=== PATIENT | male | born 1980 | race Caucasian/White ===

== ENCOUNTER 2017-01-31 00:42 | Emergency (ER) | payer BC, OTHER ==
[2017-01-31 01:09] VITALS: BP 130/69
[2017-01-31] MEDS ORDERED: CHLO50TA PO (01:15)
[2017-01-31] MEDS ORDERED: POTA50TAB PO (01:15)
[2017-01-31] MEDS ORDERED: NS 1,000 ML IV ONE ×2 (02:00→03:15)
--- NOTE | 2017-01-31 02:50 | REPUSA ---
CT of the abdomen and pelvis without contrast Clinical statement: Pain. Technique: Multiple axial CT images were obtained from the base of the lungs to the floor of the pelv is utilizing 5 mm axial slices without administration of contrast. Coronal and sagittal reconstructio ns were also obtained. No comparison is available. Findings: Chest: The visualized lung bases are clear. Abdomen: The kidneys are normal in size bilaterally. There are numerous kidney stones bilaterally. Th ere is moderate left-sided hydronephrosis and hydroureter, caused by a 4 mm stone in the distal left ureter. The liver, spleen, pancreas, gallbladder and adrenal glands are unremarkable. The aorta demon strates normal caliber and contour. There is no abdominal lymphadenopathy or ascites. Pelvis: The bowel is unremarkable, with no obstructive or inflammatory changes. The appendix is becca l. The urinary bladder is within normal limits. There is no pelvic lymphadenopathy or ascites. The ot her pelvic structures appear unremarkable. Bones: There are no suspicious osseous abnormalities seen. Impression: 1. Bilateral nephrolithiasis with moderate left-sided hydronephrosis caused by a 4 mm obstructing sto ne in the distal left ureter. 2. No obstructive or inflammatory bowel changes.
[2017-01-31] MEDS ORDERED: TAMSULOSIN 0.4 MG CAP PO ONE (03:00)
[2017-01-31] MEDS ORDERED: FLOM5CAP PO (03:48)
== END 2017-01-31 04:42 | disposition home or self-care (01) ==
LOC: M ED 00:42
DX: N20.1 Calculus of ureter (principal); Z72.0 Tobacco use; I10 Essential (primary) hypertension

== ENCOUNTER → 2017-02-03 | Outpatient (CLI) | payer OTHER ==
[~2017-02-03] MED LIST: CHLO50TA PO; FLOM5CAP PO; POTA50TAB PO
--- NOTE | 2017-02-03 22:50 | REP ---
Clinical: Nephrolithiasis. Comparison: CT dated 01/31/2017. Technique: Upright view of the chest with supine and upright views of the abdomen and pelvis. Findings: Frontal upright view of the chest demonstrates no acute cardiopulmonary process or free air below the diaphragm to suspect pneumoperitoneum. Supine and upright views of the abdomen and pelvis demonstrate nonspecific bowel gas pattern without obstruction or perforation. No organomegaly. Evaluation for nephroureterolithiasis is limited. Skeletal structures are intact. Impression: Nonspecific bowel gas pattern. Incomplete evaluation for urinary tract calcifications. Signed by Guanako Man MD 02/03/2017 10:42 P
== END ==
LOC: M SMT 10:10
PROVIDERS: ATTEND Family Medicine
DX: N20.0 Calculus of kidney (principal)

== ENCOUNTER → 2017-04-21 | Outpatient (CLI) | payer OTHER ==
[2017-04-21 13:47] LABS: ALBUMIN 4.3 GM/DL (3.2-5.2); ALKALINE PHOSPHATASE 101 U/L (45-117); ALT/SGPT 29 U/L (12-78); ANION GAP 5 MEQ/L (8-16); AST/SGOT 21 U/L (7-37); BILIRUBIN,TOTAL 0.5 MG/DL (0.2-1.0); BLOOD UREA NITROGEN 14 MG/DL (7-18); CARBON DIOXIDE LEVEL 31 MEQ/L (21-32); CHLORIDE LEVEL 101 MEQ/L (98-107); CHOLESTEROL LEVEL 262 MG/DL (<200); CREATININE FOR GFR 1.09 MG/DL (0.70-1.30); GLOMERULAR FILTRATION RATE > 60.0 (>60); GLUCOSE, FASTING 96 MG/DL (70-105); POTASSIUM SERUM 3.7 MEQ/L (3.5-5.1); SODIUM LEVEL 137 MEQ/L (136-145); TOTAL PROTEIN 8.2 GM/DL (6.4-8.2); TRIGLYCERIDES LEVEL 169 MG/DL (<150)
== END ==
LOC: M SMT 10:22
PROVIDERS: ATTEND Family Medicine
DX: Z13.220 Encounter for screening for lipoid disorders (principal); Z13.1 Encounter for screening for diabetes mellitus

== ENCOUNTER → 2017-12-23 | Outpatient (REF) | payer OTHER ==
[2017-12-23 12:44] LABS: ALBUMIN 4.2 GM/DL (3.2-5.2); ALBUMIN/GLOBULIN RATIO 1.17 (1.00-1.93); ALKALINE PHOSPHATASE 77 U/L (45-117); ALT/SGPT 24 U/L (12-78); ANION GAP 8 MEQ/L (8-16); AST/SGOT 23 U/L (7-37); BILIRUBIN,TOTAL 0.3 MG/DL (0.2-1.0); BLOOD UREA NITROGEN 18 MG/DL (7-18); CALCIUM LEVEL 9.3 MG/DL (8.5-10.1); CARBON DIOXIDE LEVEL 29 MEQ/L (21-32); CHLORIDE LEVEL 104 MEQ/L (98-107); CHOLESTEROL LEVEL 219 MG/DL (<200); CHOLESTEROL RISK RATIO 6.441 (<5); CREATININE FOR GFR 1.13 MG/DL (0.70-1.30); FREE T4 0.93 NG/DL (0.76-1.46); GLOMERULAR FILTRATION RATE > 60.0 (>60); GLUCOSE, FASTING 96 MG/DL (70-100); HDL CHOLESTEROL 34 MG/DL (>40); LDL CHOLESTEROL 144.6 MG/DL (<100); NON-HDL-C 185 MG/DL; POTASSIUM SERUM 3.9 MEQ/L (3.5-5.1); SODIUM LEVEL 141 MEQ/L (136-145); TOTAL PROTEIN 7.8 GM/DL (6.4-8.2); TRIGLYCERIDES LEVEL 202 MG/DL (<150)
== END ==
LOC: M SFHCPLAZ 08:50
DX: E78.2 Mixed hyperlipidemia (principal)
CPT/HCPCS: 84443

== ENCOUNTER → 2025-02-28 | Outpatient (REF) | payer OTHER ==
[~2025-02-28] MED LIST changes: -FLOM5CAP PO; +TAMS-18 PO
== END ==
LOC: M LAB REF 12:11
PROVIDERS: ATTEND Family Medicine
DX: R19.7 Diarrhea, unspecified (principal)

== ENCOUNTER → 2025-03-22 | Outpatient (REF) | payer OTHER | LOC: M LAB REF 12:47 | PROVIDERS: ATTEND Family Medicine | DX: K62.5 Hemorrhage of anus and rectum (principal); R19.7 Diarrhea, unspecified ==